=== PATIENT | female | born 1990 | race American Indian/Alaskan Native ===

== ENCOUNTER 2018-05-12 20:23 | Emergency (ER) | payer MEDICAID, SELFPAY ==
[2018-05-12 20:32] VITALS: BP 114/85; PULSE 93; RESP 17; TEMP 36.2; O2SAT 100
--- NOTE | 2018-05-12 20:39 | ED.PREGNANCY ---
HPI - General Chief complaint: OB/Uterine Contractions Stated complaint: CRAMPING, SPOTTING 7 WEEKS Time Seen by Provider: 05/12/18 20:27 Source: patient Mode of arrival: ambulatory Limitations: no limitations History of Present Illness HPI Narrative: Patient is a at 7 weeks with a chief complaint of some left lower pelvic cramping and spotting over the course of the day. She denies any dysuria, frequency or urgency. She denies any fever or chills. She denies nausea, vomiting or diarrhea Onset (ago): day(s) Pain Consistency: intermittent Location: pelvis Severity: mild Quality: Cramping Radiation: pelvis Relieving factors: none Exacerbating factors: none Associated symptoms: denies other symptoms Vaginal discharge: none Vaginal bleeding: light Related Data : 4 Para: 2 Home Medications Medication Instructions Recorded Confirmed dextroamphetamine-amphetamine #0 05/17/17 [Adderall] Allergies Allergy/AdvReac Type Severity Reaction Status Date / Time No Known Allergies Allergy Uncoded 12/30/17 12:31 Review of Systems Review of Systems All systems reviewed & are unremarkable except as noted in HPI and below Constitutional Denies chills, Denies fever(s), Denies lethargy and Denies weakness Eyes Denies change in vision, Denies eye discharge, Denies irritation and Denies loss of vision ENT Ears, Nose, Mouth, and Throat: Denies change in voice, Denies neck pain and Denies sore throat Cardiovascular Denies chest pain, Denies irregular heart rhythm, Denies lightheadedness, Denies palpitations, Denies dyspnea, Denies dyspnea on exertion and Denies orthopnea Respiratory Denies cough, Denies dyspnea, Denies dyspnea on exertion and Denies wheezing Gastrointestinal Gastrointestinal: Denies abdominal pain, Denies change in bowel habits, Denies diarrhea, Denies nausea and Denies vomiting Genitourinary Reports abnormal vaginal bleeding, Denies hematuria, Denies flank pain, Denies urinary incontinence and Denies urinary urgency Musculoskeletal Denies neck pain Integumentary/Breasts Denies pruritus, Denies erythema, Denies rash and Denies wounds Neurologic Denies confusion, Denies loss of vision and Denies weakness Psychiatric Denies anxiety, Denies confusion, Denies depression, Denies homicidal ideation and Denies suicidal ideation Endocrine Denies palpitations Hematologic/Lymphatic Denies easy bruising Allergic/Immunologic Denies wheezing PMFSH - Past Medical History Medical history: Reports non-contributory Surgical history: Reports non-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 Extraoccular muscles are intact bilaterally. There is no subconjunctival hemorrhage or exudate. CHEST: Lungs are clear to auscultation bilaterally and free of wheezes, rales, or rhonchi. Heart rate is regular rhythm, there are no murmurs, clicks, rubs, or gallops. There is no chest wall tenderness. ABD: Abdomen is soft and nontender. There is no guarding or rebound. Bowel sounds are normal in all 4 quadrants. There is no mass or organomegaly. EXT: Full painless ROM of all extremities with no loss of sensation or strength. SKIN: Warm, pink, and dry. No erythema or rash Initial Vital Signs Initial Vital Signs: Vital Signs Temperature 97.2 F L 05/12/18 20:32 Pulse Rate 93 H 05/12/18 20:32 Respiratory Rate 17 05/12/18 20:32 Blood Pressure 114/85 H 05/12/18 20:32 Pulse Oximetry 100 05/12/18 20:32 Course Orders Ordered: ED Orders 05/12/18 21:31 Basic Metabolic Panel Stat Complete Blood Count AUTO DIFF Stat HCG Quantitative Stat Vital Signs - 8 hr 05/12/18 22:40 Pulse Rate 80 Respiratory Rate 18 Blood Pressure 137/44 H MDM - OB/Uterine Contractions Medical Records Attestation: I reviewed the patient's medical records. Lab Data Result diagrams: 05/12/18 21:31 05/12/18 21:31 Lab Results 05/12/18 05/12/18 05/12/18 Range/Units 21:31 21:31 21:31 WBC 14.0 H (4.5-11.0) X10^3/uL RBC 4.78 (4.0-5.2) X10^6/uL Hgb 14.1 (12.0-16.0) g/dL Hct 40.8 (36-46) % MCV 85.4 (80-100) fL MCH 29.6 (26-34) PG MCHC 34.6 (30-36) % RDW 13.5 (11.6-14.8) % Plt Count 312 (150-400) X10^3/uL Neut % (Auto) 67.2 (50-75) % Lymph % (Auto) 24.0 L (25-40) % [place] % (Auto) 6.5 (3-14) % Eos % (Auto) 1.4 L (2-4) % Baso % (Auto) 0.9 (0-2) % Neut # (Auto) 9400 H (5627-3304) /uL Sodium 138 (137-145) mmol/L Potassium 3.6 (3.4-5.1) mmol/L Chloride 103 (98-107) mmol/L Carbon Dioxide 24 (22-32) mmol/L BUN 7 (7-17) mg/dL Creatinine 0.80 (0.52-1.04) mg/dL Estimated GFR > 60.0 (>60) mL/min BUN/Creatinine Ratio 8.8 (6-22) Glucose 96 (70-100) mg/dL Calcium 9.1 (8.4-10.2) mg/dL HCG, Quant 10571 mIU/mL Imaging Data Pelvic US: Radiologist's impression: PROCEDURE: US OB <= 14 WEEKS FETUS INDICATIONS: SPOTTING OUTSIDE/PRIOR DATING DATA: Last menstrual period (LMP): 03/22/18. LMP-based estimated date of delivery (LEAH): 12/27/18. First dating scan (date and location): 05/12/18. Estimated date of delivery (LEAH) from first dating scan: 12/29/18. TECHNIQUE: Real-time scanning was performed of the fetus and maternal pelvic organs, with image documentation. COMPARISON: None. FINDINGS: Embryo: Early intrauterine identified. [place]-rump length measures 0.9 cm corresponding to ultrasound estimated gestational age of 7 weeks days. heart rate measured at 121 beats per minute. Measurement variability in dating: +/- 4 weeks by LMP, +/- 7 days by mean sac diameter (use before 6 weeks gestation if crown-rump length not able to be measured), +/- 5 days by crown-rump length (up to 8 weeks 6 days gestation), +/- 7 days by crown-rump length (up to 13 weeks 6 days gestation). Maternal organs: 1.7 cm diameter simple cyst is noted in the right adnexa. Left adnexa is not visualized and cannot be evaluated. Limited images through the kidneys demonstrate no hydronephrosis. IMPRESSION: 1. Early living intrauterine with ultrasound estimated gestational age of 7 weeks 0 days corresponding to ultrasound LEAH of 12/29/2018. Dates are concordant with last menstrual period dated. 2. 1.7 cm simple right adnexal cyst. 3. Left adnexa not visualized and cannot be evaluated. Dictated by: Samantha Mendez MD, PhD on 05/12/2018 at 22:06 Approved by: Samantha Mendez MD, PhD on 05/12/2018 at 22:08 Discharge Plan Departure Patient Disposition: Home Clinical Impression: Bleeding in early Discharge Date/Time: 05/12/18 22:40 Interventions: ED Discharge Assessment Last Done: 05/12/18 22:40 Instructions: DI for -- Discomforts and Remedies Activity Restrictions/Additional Instructions: *You have been diagnosed with [ bleeding in ] *What to do: *Take medications as directed: vitamins *Follow up with your primary care provider or medical doctor md/medical director in 2-3 days, call for an appointment. Let them know you were seen in the Emergency Department and that we ask that you be seen in follow up *Return to ER if you should have any new, worsening or concerning symptoms, such as [ increased bleeding, pain, dizziness or other bothersome symptoms] Prescriptions: No Action dextroamphetamine-amphetamine [Adderall] 20 MG tablet Qty: 0 RF: 0 Referrals: Italo Clarke MD [Primary Care Provider] -
--- NOTE | 2018-05-12 20:44 | DI.US.S_ITS ---
PROCEDURE: US OB <= 14 WEEKS FETUS INDICATIONS: SPOTTING OUTSIDE/PRIOR DATING DATA: Last menstrual period (LMP): 03/22/18. LMP-based estimated date of delivery (LEAH): 12/27/18. First dating scan (date and location): 05/12/18. Estimated date of delivery (LEAH) from first dating scan: 12/29/18. TECHNIQUE: Real-time scanning was performed of the fetus and maternal pelvic organs, with image documentation. COMPARISON: None. FINDINGS: Embryo: Early intrauterine identified. [place]-rump length measures 0.9 cm corresponding to ultrasound estimated gestational age of 7 weeks days. heart rate measured at 121 beats per minute. Measurement variability in dating: +/- 4 weeks by LMP, +/- 7 days by mean sac diameter (use before 6 weeks gestation if crown-rump length not able to be measured), +/- 5 days by crown-rump length (up to 8 weeks 6 days gestation), +/- 7 days by crown-rump length (up to 13 weeks 6 days gestation). Maternal organs: 1.7 cm diameter simple cyst is noted in the right adnexa. Left adnexa is not visualized and cannot be evaluated. Limited images through the kidneys demonstrate no hydronephrosis. IMPRESSION: 1. Early living intrauterine with ultrasound estimated gestational age of 7 weeks 0 days corresponding to ultrasound LEAH of 12/29/2018. Dates are concordant with last menstrual period dated. 2. 1.7 cm simple right adnexal cyst. 3. Left adnexa not visualized and cannot be evaluated. Dictated by: Samantha Mendez MD, PhD on 05/12/2018 at 22:06 Approved by: Samantha Mendez MD, PhD on 05/12/2018 at 22:08
--- NOTE | 2018-05-12 21:43 | PC.NURSE ---
pt. describes spotting as pinkish
[2018-05-12 21:47] LABS: Add Manual Diff / Slide Review NO; Basophils Percent Auto 0.9 % (0-2); Eosinophils Percent Auto 1.4 % (2-4); Hematocrit 40.8 % (36-46); Hemoglobin 14.1 g/dL (12.0-16.0); Mean Corpuscular HGB Conc 34.6 % (30-36); Mean Corpuscular Hemoglobin 29.6 PG (26-34); Mean Corpuscular Volume 85.4 fL (80-100); Monocytes Percent Auto 6.5 % (3-14); Neutrophils Absolute Auto 9400 /uL (3000-5900); Neutrophils Percent Auto 67.2 % (50-75); Platelet Count 312 X10^3/uL (150-400); Red Blood Cell Count 4.78 X10^6/uL (4.0-5.2); Red Cell Distribution Width 13.5 % (11.6-14.8)
[2018-05-12 21:55] LABS: BUN Creatinine Ratio 8.8 (6-22); Blood Urea Nitrogen 7 mg/dL (7-17); Calcium 9.1 mg/dL (8.4-10.2); Carbon Dioxide 24 mmol/L (22-32); Chloride 103 mmol/L (98-107); Estimated Glomerular Filt Rate > 60.0 mL/min (>60); Glucose 96 mg/dL (70-100); HEMOLYSIS 30 (0-50); Potassium 3.6 mmol/L (3.4-5.1); Sodium 138 mmol/L (137-145)
[2018-05-12 22:15] LABS: HCG Quantitative /Beta subunit 48761 mIU/mL
[2018-05-12 22:40] VITALS: BP 137/44; PULSE 80; RESP 18
--- NOTE | 2018-05-12 22:46 | ED_ITS ---
HPI - General Chief complaint: OB/Uterine Contractions Stated complaint: CRAMPING, SPOTTING 7 WEEKS Time Seen by Provider: 05/12/18 20:27 Source: patient Mode of arrival: ambulatory Limitations: no limitations History of Present Illness HPI Narrative: Patient is a at 7 weeks with a chief complaint of some left lower pelvic cramping and spotting over the course of the day. She denies any dysuria, frequency or urgency. She denies any fever or chills. She denies nausea, vomiting or diarrhea Onset (ago): day(s) Pain Consistency: intermittent Location: pelvis Severity: mild Quality: Cramping Radiation: pelvis Relieving factors: none Exacerbating factors: none Associated symptoms: denies other symptoms Vaginal discharge: none Vaginal bleeding: light Related Data : 4 Para: 2 Home Medications Medication Instructions Recorded Confirmed dextroamphetamine-amphetamine #0 05/17/17 [Adderall] Allergies Allergy/AdvReac Type Severity Reaction Status Date / Time No Known Allergies Allergy Uncoded 12/30/17 12:31 Review of Systems Review of Systems All systems reviewed & are unremarkable except as noted in HPI and below Constitutional Denies chills, Denies fever(s), Denies lethargy and Denies weakness Eyes Denies change in vision, Denies eye discharge, Denies irritation and Denies loss of vision ENT Ears, Nose, Mouth, and Throat: Denies change in voice, Denies neck pain and Denies sore throat Cardiovascular Denies chest pain, Denies irregular heart rhythm, Denies lightheadedness, Denies palpitations, Denies dyspnea, Denies dyspnea on exertion and Denies orthopnea Respiratory Denies cough, Denies dyspnea, Denies dyspnea on exertion and Denies wheezing Gastrointestinal Gastrointestinal: Denies abdominal pain, Denies change in bowel habits, Denies diarrhea, Denies nausea and Denies vomiting Genitourinary Reports abnormal vaginal bleeding, Denies hematuria, Denies flank pain, Denies urinary incontinence and Denies urinary urgency Musculoskeletal Denies neck pain Integumentary/Breasts Denies pruritus, Denies erythema, Denies rash and Denies wounds Neurologic Denies confusion, Denies loss of vision and Denies weakness Psychiatric Denies anxiety, Denies confusion, Denies depression, Denies homicidal ideation and Denies suicidal ideation Endocrine Denies palpitations Hematologic/Lymphatic Denies easy bruising Allergic/Immunologic Denies wheezing PMFSH - Past Medical History Medical history: Reports non-contributory Surgical history: Reports non-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 Extraoccular muscles are intact bilaterally. There is no subconjunctival hemorrhage or exudate. CHEST: Lungs are clear to auscultation bilaterally and free of wheezes, rales, or rhonchi. Heart rate is regular rhythm, there are no murmurs, clicks, rubs, or gallops. There is no chest wall tenderness. ABD: Abdomen is soft and nontender. There is no guarding or rebound. Bowel sounds are normal in all 4 quadrants. There is no mass or organomegaly. EXT: Full painless ROM of all extremities with no loss of sensation or strength. SKIN: Warm, pink, and dry. No erythema or rash Initial Vital Signs Initial Vital Signs: Vital Signs Temperature 97.2 F L 05/12/18 20:32 Pulse Rate 93 H 05/12/18 20:32 Respiratory Rate 17 05/12/18 20:32 Blood Pressure 114/85 H 05/12/18 20:32 Pulse Oximetry 100 05/12/18 20:32 Course Orders Ordered: ED Orders 05/12/18 21:31 Basic Metabolic Panel Stat Complete Blood Count AUTO DIFF Stat HCG Quantitative Stat Vital Signs - 8 hr 05/12/18 22:40 Pulse Rate 80 Respiratory Rate 18 Blood Pressure 137/44 H MDM - OB/Uterine Contractions Medical Records Attestation: I reviewed the patient's medical records. Lab Data Result diagrams: 05/12/18 21:31 05/12/18 21:31 Lab Results 05/12/18 05/12/18 05/12/18 Range/Units 21:31 21:31 21:31 WBC 14.0 H (4.5-11.0) X10^3/uL RBC 4.78 (4.0-5.2) X10^6/uL Hgb 14.1 (12.0-16.0) g/dL Hct 40.8 (36-46) % MCV 85.4 (80-100) fL MCH 29.6 (26-34) PG MCHC 34.6 (30-36) % RDW 13.5 (11.6-14.8) % Plt Count 312 (150-400) X10^3/uL Neut % (Auto) 67.2 (50-75) % Lymph % (Auto) 24.0 L (25-40) % [place] % (Auto) 6.5 (3-14) % Eos % (Auto) 1.4 L (2-4) % Baso % (Auto) 0.9 (0-2) % Neut # (Auto) 9400 H (7751-8704) /uL Sodium 138 (137-145) mmol/L Potassium 3.6 (3.4-5.1) mmol/L Chloride 103 (98-107) mmol/L Carbon Dioxide 24 (22-32) mmol/L BUN 7 (7-17) mg/dL Creatinine 0.80 (0.52-1.04) mg/dL Estimated GFR > 60.0 (>60) mL/min BUN/Creatinine Ratio 8.8 (6-22) Glucose 96 (70-100) mg/dL Calcium 9.1 (8.4-10.2) mg/dL HCG, Quant 92679 mIU/mL Imaging Data Pelvic US: Radiologist's impression: PROCEDURE: US OB <= 14 WEEKS FETUS INDICATIONS: SPOTTING OUTSIDE/PRIOR DATING DATA: Last menstrual period (LMP): 03/22/18. LMP-based estimated date of delivery (LEAH): 12/27/18. First dating scan (date and location): 05/12/18. Estimated date of delivery (LEAH) from first dating scan: 12/29/18. TECHNIQUE: Real-time scanning was performed of the fetus and maternal pelvic organs, with image documentation. COMPARISON: None. FINDINGS: Embryo: Early intrauterine identified. [place]-rump length measures 0.9 cm corresponding to ultrasound estimated gestational age of 7 weeks days. heart rate measured at 121 beats per minute. Measurement variability in dating: +/- 4 weeks by LMP, +/- 7 days by mean sac diameter (use before 6 weeks gestation if crown-rump length not able to be measured), +/ - 5 days by crown-rump length (up to 8 weeks 6 days gestation), +/- 7 days by crown-rump length (up to 13 weeks 6 days gestation). Maternal organs: 1.7 cm diameter simple cyst is noted in the right adnexa. Left adnexa is not visualized and cannot be evaluated. Limited images through the kidneys demonstrate no hydronephrosis. IMPRESSION: 1. Early living intrauterine with ultrasound estimated gestational age of 7 weeks 0 days corresponding to ultrasound LEAH of 12/29/2018. Dates are concordant with last menstrual period dated. 2. 1.7 cm simple right adnexal cyst. 3. Left adnexa not visualized and cannot be evaluated. Dictated by: Samantha Mendez MD, PhD on 05/12/2018 at 22:06 Approved by: Samantha Mendez MD, PhD on 05/12/2018 at 22:08 Discharge Plan Departure Patient Disposition: Home Clinical Impression: Bleeding in early Discharge Date/Time: 05/12/18 22:40 Interventions: ED Discharge Assessment Last Done: 05/12/18 22:40 Instructions: DI for -- Discomforts and Remedies Activity Restrictions/Additional Instructions: *You have been diagnosed with [ bleeding in ] *What to do: *Take medications as directed: vitamins *Follow up with your primary care provider or station worker in 2-3 days, call for an appointment. Let them know you were seen in the Emergency Department and that we ask that you be seen in follow up *Return to ER if you should have any new, worsening or concerning symptoms , such as [ increased bleeding, pain, dizziness or other bothersome symptoms] Prescriptions: No Action dextroamphetamine-amphetamine [Adderall] 20 MG tablet Qty: 0 RF: 0 Referrals: Italo Clarke MD [Primary Care Provider] -
== END 2018-05-12 22:40 | disposition home or self-care (01) ==
PROVIDERS: Emergency Provider Emergency Medicine; Family Provider Family Medicine; PCP Family Medicine
DX: O20.9 Hemorrhage in early pregnancy, unspecified (principal); Z3A.01 Less than 8 weeks gestation of pregnancy
CPT/HCPCS: 36591; 76801; 76817; 80048; 81003; 84702; 85025; 99282; 99284

== ENCOUNTER → 2018-11-04 15:09 | Outpatient (CLI) | payer OTHER, MEDICAID, SELFPAY ==
--- NOTE | 2018-11-04 | DI.US.S_ITS ---
PROCEDURE: US OB <= 14 WEEKS FETUS INDICATIONS: PAIN/BLEEDING OUTSIDE/PRIOR DATING DATA: Last menstrual period (LMP): Patient had an IUD placed in April 2018. LMP-based estimated date of delivery (LEAH): N./A.. First dating scan (date and location): 11/04/2018. Estimated date of delivery (LEAH) from first dating scan: 06/23/2019. TECHNIQUE: Real-time scanning was performed of the fetus and maternal pelvic organs, with image documentation. Endovaginal scanning was also performed to better visualize the fetus and maternal ovaries. COMPARISON: [facility], , OB <= 14 WEEKS FETUS, 05/12/2018, 21:34. FINDINGS: Embryo: There is a single intrauterine gestation measuring approximately 7 weeks and 0 days. The mean gestational sac diameter measured 2.7 cm which correlates with a gestational age of approximately 7 weeks and 5 days. The crown-rump length measured 0.5 cm, correlating with approximately 6 weeks and 2 days. heart rate measured 115 beats per minute. Measurement variability in dating: +/- 4 weeks by LMP, +/- 7 days by mean sac diameter (use before 6 weeks gestation if crown-rump length not able to be measured), +/- 5 days by crown-rump length (up to 8 weeks 6 days gestation), +/- 7 days by crown-rump length (up to 13 weeks 6 days gestation). Maternal organs: The bilateral ovaries/adnexa unremarkable. Small 1.1 cm right ovarian cyst. Of note, patient reports that an IUD was placed in April 2018 and she has not been able to feel the IUD strings. There is a thin echogenic structure identified in close vicinity to the inferior margin of the gestational sac without significantly posterior shadowing or the expected appearance of an intrauterine device. There is a heterogeneous, avascular collection seen immediately inferior to the gestational sac measuring 1.9 x 1.4 x 2.1 cm which may represent a small focus of hemorrhagic products. Small nabothian cyst noted within the cervix. IMPRESSION: 1. Single living intrauterine gestation measuring approximately 7 weeks and 0 days. 2. The patient reports placement of an intrauterine device in April 2018 and has not been able to feel the strings. There is an echogenic structure in close vicinity to the inferior aspect of the gestational sac in the lower endometrial cavity which does not have the expected appearance of an IUD. No definitive visualization of a intrauterine device. Additionally, small avascular heterogeneous focus is noted adjacent to the inferior margin of the gestational sac which may represent a small focus of hemorrhage or complicated fluid. Findings were discussed with SMITH Contreras. Recommended correlation with physical examination for presence of IUD strings within the cervical canal. Consider further sonographic imaging of the cervix and lower uterus if there is visualization of the strings in order to possibly locate the exact position of the IUD. A pelvic radiograph to confirm presence of an IUD was also discussed, but not recommended secondary to presence of an early intrauterine gestation. Dictated by: Juan M Wset M.D. on 11/05/2018 at 9:50 Approved by: Juan M West M.D. on 11/05/2018 at 10:03
== END ==
PROVIDERS: PCP Physician Assistant; Visit Provider Physician Assistant
DX: O46.91 Antepartum hemorrhage, unspecified, first trimester (principal); Z3A.01 Less than 8 weeks gestation of pregnancy
CPT/HCPCS: 76801; 76817

== ENCOUNTER → 2018-11-10 17:08 | Outpatient (CLI) | payer OTHER, MEDICAID, SELFPAY ==
--- NOTE | 2018-11-10 | DI.RAD.S_ITS ---
PROCEDURE: XR ABDOMEN 1V INDICATIONS: DISPLACEMENT OF INTRAUTERINE DEVICE TECHNIQUE: One view of the abdomen acquired. COMPARISON: None. FINDINGS: Surgical changes and devices: None. Bowel: Bowel gas pattern is normal. Soft tissues: No suspicious abdominal calcifications. Visualized solid organ contours appear normal in size. Bones: No suspicious bony lesions. IMPRESSION: No intrauterine device is seen. No gross free air. Dictated by: Tonny Chance M.D. on 11/10/2018 at 17:56 Approved by: Tonny Chance M.D. on 11/10/2018 at 17:57
== END ==
PROVIDERS: PCP Physician Assistant; Visit Provider Family Medicine
DX: T83.32XA Displacement of intrauterine contraceptive device, initial encounter (principal)
CPT/HCPCS: 74018

== ENCOUNTER 2022-09-03 06:44 | Emergency (ER) | payer OTHER, SELFPAY ==
[2022-09-03 06:50] VITALS: BP 123/57; PULSE 85; RESP 18; TEMP 36.2; O2SAT 99; BMI 32.4
--- NOTE | 2022-09-03 06:57 | ED_ITS ---
HPI - General Adult General Chief complaint: Vaginal Bleeding Stated complaint: 12 weeks bleeding and cramping Time Seen by Provider: 09/03/22 06:57 History of Present Illness HPI narrative: 32F nonsmoker is at 12 weeks presents with a chief complaint of spotting off and on for the past few weeks. She was out of town few days ago was seen and evaluated in emergency department in [place] and was given return precautions which include increased bleeding or cramping would require a repeat visit, hence her trip to see us. She denies significant bleeding but does have more cramping today. She has no headache or blurred vision denies chest pain or shortness of breath. She has not some nausea and a few episodes of vomiting which seems to make her spot a bit more. She denies chest pain or shortness of breath. She has no dysuria, frequency or urgency Related Data Home Medications Medication Instructions Recorded Confirmed dextroamphetamine-amphetamine 20 ##0 05/17/17 mg tablet (Adderall) Previous Rx's Medication Instructions Recorded cephalexin 500 mg capsule 500 mg PO BID #14 caps 09/03/22 Allergies Allergy/AdvReac Type Severity Reaction Status Date / Time No Known Drug Allergies Allergy Verified 09/03/22 08:03 Review of Systems Review of Systems Narrative: GENERAL: Denies chills, fatigue, malaise, fever, sweats. HEENT: Denies sinus pain, ear pain, sore throat, difficulty swallowing, dizziness. RESPIRATORY: Denies dyspnea, cough, wheezing, hemoptysis, sputum. CARDIOVASCULAR: Denies chest pain, palpitations, orthopnea, edema, GASTROINTESTINAL: D see HPI : See HPI. MUSCULOSKELETAL: denies weakness, joint pain, or bony pain SKIN: Denies rash, skin lesions, or other NEUROLOGIC: Denies weakness, headache, numbness, change in speech, confusion, seizures, incoordination. PSYCHIATRIC: No concerning psychosocial issues. 12 point review of systems is negative except for those stated above Patient History Social History Smoking Status: Unknown if ever smoked Smoking Status: Unknown if ever smoked alcohol intake frequency: 0-2 drinks per day Substance Use Type: does not use Exam Narrative Exam Narrative: GENERAL: [32] year old patient appears stated age. Well-developed patient, in mild distress. HEAD: Atraumatic. Normocephalic. EYES: Pupils equal round and reactive. Extraocular motions intact. No scleral icterus. No injection or drainage. ENT: Nose without bleeding, purulent drainage. Throat without erythema, tonsillar hypertrophy or exudate. Airway patent. NECK: Trachea midline. Non tender CARDIOVASCULAR: Regular rate and rhythm without murmurs, gallops, or rubs. RESPIRATORY: Clear to auscultation. Breath sounds equal bilaterally. No wheezes, rales, or rhonchi. GASTROINTESTINAL: Abdomen soft, non-tender, nondistended. EXTREMITIES: No edema or joint tenderness. BACK: Nontender without deformity or crepitance. No flank tenderness. NEURO: AOx3. SKIN: No rash or erythema of visible areas Initial Vital Signs Initial Vital Signs: Vital Signs Temperature 97.2 F L 09/03/22 06:50 Pulse Rate 85 09/03/22 06:50 Respiratory Rate 18 09/03/22 06:50 Blood Pressure 123/57 L 09/03/22 06:50 Pulse Oximetry 99 09/03/22 06:50 Oxygen Delivery Method 09/03/22 06:50 Course Orders Ordered: ED Orders 09/03/22 07:01 US OB <= 14 weeks fetus Stat 09/03/22 07:18 ABO RH Type Stat BMP [Basic Metabolic Panel] Stat CBC Auto Diff [Complete Blood Count AUTO DIFF] Stat HCG Quantitative /Beta subunit Stat 09/03/22 08:00 Urinalysis and Microscopic Stat Urine Culture Stat Vital Signs Vital signs: Vital Signs - 8 hr 09/03/22 06:50 Temperature 97.2 F L Pulse Rate 85 Respiratory Rate 18 Blood Pressure 123/57 L Pulse Oximetry 99 Oxygen Delivery Method Room Air Medical Decision Making Lab Data Result diagrams: 09/03/22 07:18 09/03/22 07:18 Labs: Lab Results 09/03/22 09/03/22 09/03/22 Range/Units 07:18 07:18 07:18 WBC 9.6 (4.5-11.0) X10^3/uL RBC 4.60 (4.0-5.2) X10^6/uL Hgb 13.7 (12.0-16.0) g/dL Hct 41.0 (36-46) % MCV 89.2 (80-100) fL MCH 29.9 (26-34) PG MCHC 33.5 (30-36) % RDW 13.3 (11.6-14.8) % Plt Count 236 (150-400) X10^3/uL Neut % (Auto) 60.8 (50-75) % Lymph % (Auto) 31.7 (25-40) % [place]ati % (Auto) 5.6 (3-14) % Eos % (Auto) 1.2 L (2-4) % Baso % (Auto) 0.7 (0-2) % Neut # (Auto) 5800 (1272-0657) /uL Lymph # (Auto) 3000 (8896-5752) /uL Manati # (Auto) 500 (0-900) /uL Eos # (Auto) 100 (0-450) /uL Baso # (Auto) 100 (0-100) /uL Sodium 137 (137-145) mmol/L Potassium 3.7 (3.4-5.1) mmol/L Chloride 106 (98-107) mmol/L Carbon Dioxide 22 (22-32) mmol/L BUN 6 L (7-17) mg/dL Creatinine 0.61 (0.52-1.04) mg/dL Estimated GFR > 60 (>60) mL/min BUN/Creatinine Ratio 9.8 (6-22) Glucose 91 (70-100) mg/dL Calcium 8.5 (8.4-10.2) mg/dL HCG, Quant 765578 mIU/mL Urine Color Urine Appearance Urine pH (4.5-8.0) Ur Specific Kaufman (1.000-1.035) Urine Protein (Negative) Urine Glucose (UA) (Negative) g/dL Urine Ketones (NEGATIVE) Urine Occult Blood (Negative) Urine Nitrate (Negative) Urine Bilirubin (NEGATIVE) Urine Urobilinogen (0.2) E.U./dL Ur Leukocyte Esterase (NEGATIVE) Urine RBC (0-5/HPF) Urine WBC (0-5/HPF) Ur Squamous Epith Cells (0-5/HPF) Amorphous Sediment Urine Bacteria (None) Ur Culture Indicated? Blood Type O Positive 09/03/22 Range/Units 08:00 WBC (4.5-11.0) X10^3/uL RBC (4.0-5.2) X10^6/uL Hgb (12.0-16.0) g/dL Hct (36-46) % MCV (80-100) fL MCH (26-34) PG MCHC (30-36) % RDW (11.6-14.8) % Plt Count (150-400) X10^3/uL Neut % (Auto) (50-75) % Lymph % (Auto) (25-40) % [place] % (Auto) (3-14) % Eos % (Auto) (2-4) % Baso % (Auto) (0-2) % Neut # (Auto) (5536-2742) /uL Lymph # (Auto) (9058-1796) /uL Manati # (Auto) (0-900) /uL Eos # (Auto) (0-450) /uL Baso # (Auto) (0-100) /uL Sodium (137-145) mmol/L Potassium (3.4-5.1) mmol/L Chloride (98-107) mmol/L Carbon Dioxide (22-32) mmol/L BUN (7-17) mg/dL Creatinine (0.52-1.04) mg/dL Estimated GFR (>60) mL/min BUN/Creatinine Ratio (6-22) Glucose (70-100) mg/dL Calcium (8.4-10.2) mg/dL HCG, Quant mIU/mL Urine Color Red Urine Appearance Sl cloudy Urine pH 7.0 (4.5-8.0) Ur Specific Kaufman 1.020 (1.000-1.035) Urine Protein 2+ H (Negative) Urine Glucose (UA) Negative (Negative) g/dL Urine Ketones Negative (NEGATIVE) Urine Occult Blood 3+ H (Negative) Urine Nitrate Negative (Negative) Urine Bilirubin Negative (NEGATIVE) Urine Urobilinogen 1.0 (0.2) E.U./dL Ur Leukocyte Esterase Trace H (NEGATIVE) Urine RBC 30-100/hpf H (0-5/HPF) Urine WBC 5-10/hpf H (0-5/HPF) Ur Squamous Epith Cells 5-10 /hpf H (0-5/HPF) Amorphous Sediment 1+ Urine Bacteria Many (>30) H (None) Ur Culture Indicated? Specimen cultured Blood Type Imaging Data US - OB: Radiologist's Impression: Close Ultrasound (Signed) Juan M West - 09/03/22 Launch?[address] [place] [address] Ultrasound Report Signed Patient: Chaya Evans MR#: [id number] : 1990 Acct:[id number] Age/Sex: 32 / F Date of Service: 09/03/22 Loc: Accession Number: [id number] ?? Procedure: US OB <= 14 weeks fetus Ordering Provider: Olayinka Lanza D.O. PROCEDURE:? US OB <= 14 WEEKS FETUS ? INDICATIONS:? SPOTTING ? OUTSIDE/PRIOR DATING DATA:? Last menstrual period (LMP):? Unknown.? LMP-based estimated date of delivery (LEAH):? Not applicable.? First dating scan (date and location):? September 03, 2022.? Estimated date of delivery (LEAH) from first dating scan:? March 11, 2023. ? TECHNIQUE:? Real-time scanning was performed of the fetus and maternal pelvic organs, with image documentation.? ? COMPARISON:? None. ? FINDINGS:? ? Embryo:? Single living intrauterine gestation with estimated sonographic gestational age of approximately 13 weeks and 0 days based off biometry measurements. BPD:? 1.9 cm, 13 weeks and 0 days. Head circumference:? 7.3 cm, 13 weeks and 0 day Abdominal circumference:? 6.7 cm, 13 weeks and 3 days Femur length:? 0.7 cm, 12 weeks and 2 days Heart rate:? 150 ? ? Maternal organs:? Ovaries were not well visualized. ? ? ? IMPRESSION:? Single living intrauterine gestation with estimated sonographic gestational age of approximately 13 weeks and 0 days.? This correlates with estimated dated delivery of approximately 03/11/23. ? We strive to produce accurate, complete, and clear reports of imaging services. To assist us in improving patient care, this report was composed using standard report templates and voice recognition software. Therefore, it may contain abnormal punctuation, insertions and/or omissions. Occasional wrong-word or sound-alike substitutions may occur. Though we review the report and make efforts to correct it, we do recommend that the report be read carefully in proper context to recognize any text inaccuracies. ? ? ? Dictated by: Juan M West M.D. on 09/03/2022 at 8:26 ? ? Approved by: Juan M West M.D. on 09/03/2022 at 8:35 ? Discharge Plan Departure Patient Disposition: Home Clinical Impression: Bleeding in early , UTI (urinary tract infection) Instructions: DI for Urinary Tract Infection (UTI), DI for Vaginal Bleeding During Activity Restrictions/Additional Instructions: *You have been diagnosed with [bleeding in 1st trimester, urinary tract infection. As we discussed your lab work and ultrasound are very reassuring and there is no evidence of significant intrauterine bleeding, anemia or other significant abnormality] *What to do: *Please continue to take your regular medications as directed. [x ] New medication prescriptions sent to your pharmacy: [[facility] ] [ ] New medication written as a paper prescription [ ] No new medications given *Please follow up with your primary care provider in 2-3 days, call for an a ppointment. Let them know you were seen in the Emergency Department and that we ask that you be seen in follow up. We will electronically transmit a record of today's note if your PCP is in our system *As we discussed, please consider pelvic rest until cleared by your OB. This means no vaginal penetration or highly vigorous activities. *Return to Emergency Department if you should have any new, worsening or concerning symptoms, such as [fever greater than 101 F, shaking chills, worsening pain, persistent vomiting or other bothersome symptoms] Prescriptions: New cephalexin 500 mg capsule 500 mg PO BID Qty: 14 0RF No Action dextroamphetamine-amphetamine [Adderall] 20 MG tablet Qty: 0 Referrals: Sonia Colon PA-C [Primary Care Provider] - Visit Report Forms: Patient Portal/API
--- NOTE | 2022-09-03 07:01 | DI.US.S_ITS ---
PROCEDURE: US OB <= 14 WEEKS FETUS INDICATIONS: SPOTTING OUTSIDE/PRIOR DATING DATA: Last menstrual period (LMP): Unknown. LMP-based estimated date of delivery (LEAH): Not applicable. First dating scan (date and location): September 03, 2022. Estimated date of delivery (LEAH) from first dating scan: March 11, 2023. TECHNIQUE: Real-time scanning was performed of the fetus and maternal pelvic organs, with image documentation. COMPARISON: None. FINDINGS: Embryo: Single living intrauterine gestation with estimated sonographic gestational age of approximately 13 weeks and 0 days based off biometry measurements. BPD: 1.9 cm, 13 weeks and 0 days. Head circumference: 7.3 cm, 13 weeks and 0 day Abdominal circumference: 6.7 cm, 13 weeks and 3 days Femur length: 0.7 cm, 12 weeks and 2 days Heart rate: 150 Maternal organs: Ovaries were not well visualized. IMPRESSION: Single living intrauterine gestation with estimated sonographic gestational age of approximately 13 weeks and 0 days. This correlates with estimated dated delivery of approximately 03/11/23. We strive to produce accurate, complete, and clear reports of imaging services. To assist us in improving patient care, this report was composed using standard report templates and voice recognition software. Therefore, it may contain abnormal punctuation, insertions and/or omissions. Occasional wrong-word or sound-alike substitutions may occur. Though we review the report and make efforts to correct it, we do recommend that the report be read carefully in proper context to recognize any text inaccuracies. Dictated by: Juan M West M.D. on 09/03/2022 at 8:26 Approved by: Juan M West M.D. on 09/03/2022 at 8:35
[2022-09-03 07:32] LABS: Add Manual Diff / Slide Review NO; Basophils Absolute Auto 100 /uL (0-100); Basophils Percent Auto 0.7 % (0-2); Eosinophils Absolute Auto 100 /uL (0-450); Eosinophils Percent Auto 1.2 % (2-4); Hemoglobin 13.7 g/dL (12.0-16.0); Lymphocytes Absolute Auto 3000 /uL (1100-4500); Lymphocytes Percent Auto 31.7 % (25-40); Mean Corpuscular HGB Conc 33.5 % (30-36); Mean Corpuscular Hemoglobin 29.9 PG (26-34); Mean Corpuscular Volume 89.2 fL (80-100); Monocytes Absolute Auto 500 /uL (0-900); Monocytes Percent Auto 5.6 % (3-14); Neutrophils Absolute Auto 5800 /uL (1500-7000); Neutrophils Percent Auto 60.8 % (50-75); Platelet Count 236 X10^3/uL (150-400); Red Cell Distribution Width 13.3 % (11.6-14.8); White Blood Cell Count 9.6 X10^3/uL (4.5-11.0)
[2022-09-03 07:45] LABS: BUN Creatinine Ratio 9.8 (6-22); Blood Urea Nitrogen 6 mg/dL (7-17); Calcium 8.5 mg/dL (8.4-10.2); Carbon Dioxide 22 mmol/L (22-32); Chloride 106 mmol/L (98-107); Estimated Glomerular Filt Rate > 60 mL/min (>60); Glucose 91 mg/dL (70-100); HEMOLYSIS < 15 (0-50); Potassium 3.7 mmol/L (3.4-5.1); Sodium 137 mmol/L (137-145)
[2022-09-03 08:08] LABS: Appearance Urine UA SL CLOUDY; Bilirubin Urine UA NEGATIVE (NEGATIVE); Glucose Urine UA NEGATIVE (Negative); Ketones Urine UA NEGATIVE (NEGATIVE); Leukocyte Esterase Urine UA TRACE (NEGATIVE); Nitrite Urine UA NEGATIVE (Negative); Occult Blood Urine UA 3+ (Negative); Protein Urine UA 2+ (Negative)
[2022-09-03 08:18] LABS: Amorphous Sediment Urine 1+; Bacteria Urine Many (>30); Color Urine UA Red; Culture Indicated Urine Specimen Cultured; RBC Urine 30-100/HPF (0-5/HPF); Squamous Epithelial Cell Urine 5-10 /HPF (0-5/HPF); WBC Urine 5-10/HPF (0-5/HPF)
[2022-09-03 08:27] LABS: HCG Quantitative /Beta subunit 134490 mIU/mL
[2022-09-03 08:30] VITALS: BP 109/68; PULSE 88; RESP 16; O2SAT 99
== END 2022-09-03 08:59 | disposition home or self-care (01) ==
PROVIDERS: Emergency Provider Emergency Medicine; PCP Physician Assistant
DX: O46.91 Antepartum hemorrhage, unspecified, first trimester (principal); O23.41 Unspecified infection of urinary tract in pregnancy, first trimester; N39.0 Urinary tract infection, site not specified; Z3A.12 12 weeks gestation of pregnancy
CPT/HCPCS: 36415; 76801; 80048; 81001; 84702; 85025; 86900; 86901; 87086; 99282; 99284

== ENCOUNTER 2023-01-18 10:20 | Observation (INO) | payer OTHER, SELFPAY ==
--- NOTE | 2023-01-18 | DI.US.S_ITS ---
PROCEDURE: US OB LIMITED INDICATIONS: Premature ctx; please assess cervical length, biometrics OUTSIDE/PRIOR DATING DATA: Last menstrual period (LMP): Not known. LMP-based estimated date of delivery (LEAH): Not applicable. First dating scan (date and location): 09/03/2022. Estimated date of delivery (LEAH) from first dating scan: 03/11/2023. The calculations are made using the ultrasound LEAH of 03/11/2023. TECHNIQUE: Real-time scanning was performed of the fetus, with image documentation and biometric measurements. Biophysical profile was also obtained. Endovaginal scanning: Performed for additional visualization COMPARISON: [facility], US, US OB <= 14 WEEKS FETUS, 09/03/2022, 7:12. FINDINGS: General: A single live intrauterine gestation is present. Presentation: Vertex. Placenta: Placental position is anterior , without previa. Amniotic fluid index: 19.8 cm, normal range is 5-24 cm. Single deepest vertical pocket is 7.3 cm. heart rate: 140 beats per minute. Maternal cervical canal: 1.5 cm long. Mild internal funneling can be seen. biometrics: Biparietal diameter: 8.5 cm equals 34 weeks 2 days Head circumference: 30.8 cm equals 34 weeks 2 days Abdominal circumference: 30.3 cm equals 34 weeks 2 days Femur length: 6.1 cm equals 31 weeks 5 days Ultrasound calculated gestational age: 32 weeks 4 days Composite gestational age from present scan: 33 weeks 5 days Estimated weight and percentile: 2233 g, 73rd percentile Biophysical profile: Tone: 2 points. Movement: 2 points. Respiration: 2 points. Largest pocket of fluid: 2 points. IMPRESSION: We shortened cervix, 1.5 cm. Mild internal funneling is seen. Normal biophysical profile, 8/8 points. Normal interval growth when compared to the prior ultrasound examination. We strive to produce accurate, complete, and clear reports of imaging services. To assist us in improving patient care, this report was composed using standard report templates and voice recognition software. Therefore, it may contain abnormal punctuation, insertions and/or omissions. Occasional wrong-word or sound-alike substitutions may occur. Though we review the report and make efforts to correct it, we do recommend that the report be read carefully in proper context to recognize any text inaccuracies. Dictated by: Moi Felipe M.D. on 01/18/2023 at 12:29 Approved by: Moi Felipe M.D. on 01/18/2023 at 12:32
--- NOTE | 2023-01-18 11:27 | PM.OBTRLD ---
Visit Information Visit Information Date of evaluation: 01/18/23 Primary OB Provider: Aura Khalil () On-call OB Provider: Rehan Murray Reason for Evaluation: Yes pre-term labor Comments/Additional reasons for admission: 32 yo LEAH 03/11/2023 who has been receiving her P[facility] at [facility] in [place] presents now at 32+4 wks EGA with the onset of uterine cramps since early this AM. BOWI, good FM, no change in vaginal discharge. Vital Signs Vital Signs: BP: 118/66 P: 82 R: 16 T: 36.2C PFSH Social History Smoking Status: Unknown if ever smoked Review of Systems Review of Systems Narrative: Problem-specific ROS positives included in HPI Exam Vital Signs (past 8 hours): BP: 118/66 P: 82 R: 16 T: 36.2C Const General: cooperative, healthy appearing and comfortable Nutritional Appearance: average body habitus Orientation: alert and oriented x3 HENMT Head: normal to inspection, normocephalic and atraumatic Eyes General: appearance normal, both eyes and all related structures EOM: EOM intact bilaterally Neck Neck: normal visual inspection Resp Effort & Inspection: normal respiratory effort and able to speak in complete sentences Auscultation: clear to auscultation bilaterally Cardio Rate: regular rate Rhythm: regular rhythm Heart Sounds: S1 normal, S2 normal and no murmurs GI Inspection: normal to inspection Palpation: soft and no hepatosplenomegaly Manual OB Exam: dilated 1, effaced (60), station -2 and other Uterus Location (Fundal Height): 32 Other: Cervix is soft, mid-position (BS=7) Extrem Right lower extremity: normal to inspection Objective Imaging OB US Limited: Radiologist's impression: PROCEDURE:? US OB LIMITED ? INDICATIONS:? Premature ctx; please assess cervical length, biometrics ? OUTSIDE/PRIOR DATING DATA:? Last menstrual period (LMP):? Not known.? LMP-based estimated date of delivery (LEAH):? Not applicable.? First dating scan (date and location):? 09/03/2022.? Estimated date of delivery (LEAH) from first dating scan:? 03/11/2023. The calculations are made using the ultrasound LEAH of 03/11/2023.? ? TECHNIQUE:? Real-time scanning was performed of the fetus, with image documentation and biometric measurements.? Biophysical profile was also obtained.? Endovaginal scanning:? Performed for additional visualization ? COMPARISON:? [facility], , OB <= 14 WEEKS FETUS, 09/03/2022, 7:12. ? FINDINGS:? ? General:? A single live intrauterine gestation is present.? Presentation:? Vertex.? Placenta:? Placental position is anterior , without previa.? ? Amniotic fluid index:? 19.8 cm, normal range is 5-24 cm.? Single deepest vertical pocket is 7.3 cm. heart rate:? 140 beats per minute.? Maternal cervical canal:? 1.5 cm long.? Mild internal funneling can be seen. ? biometrics:? Biparietal diameter:? 8.5 cm equals 34 weeks 2 days Head circumference:? 30.8 cm equals 34 weeks 2 days Abdominal circumference:? 30.3 cm equals 34 weeks 2 days Femur length:? 6.1 cm equals 31 weeks 5 days Ultrasound calculated gestational age:? 32 weeks 4 days Composite gestational age from present scan:? 33 weeks 5 days Estimated weight and percentile:? 2233 g, 73rd percentile ? Biophysical profile:? Tone:? 2 points. Movement:? 2 points.? Respiration:? 2 points.? Largest pocket of fluid:? 2 points.? IMPRESSION:? We shortened cervix, 1.5 cm.? Mild internal funneling is seen. ? Normal biophysical profile, 8/8 points. ? Normal interval growth when compared to the prior ultrasound examination.? Evaluation Evaluation Baseline heart rate: 140 Variability: Moderate (11-25) monitor accelerations: Present Monitor Decelerations: Absent Contraction Frequency (minutes): 5 Uterine Contraction Intensity: Mild Category of Tracing: Reactive Status: Category l Cervical dilation (cm): 1 Cervical effacement (%): 60 station: -2 Comments: FFN:NEGATIVE Cervical length: 1.5 CM; patient states this is a significant change from prior cervical length determinations at Diagnosis, Plan/Disposition Final Diagnosis (1) : Status: Acute Problem details: 32+4 wks EGA (2) Premature uterine contractions causing threatened premature labor in third trimester: Status: Acute (3) History of premature delivery, currently : Status: Acute Problem details: Delivered 25 wks EGA, 1st DOL Plan/Disposition Plan: Oral hydration with p.o. H2O P.O. nifedipine protocol, 10 mg p.o. Q 20 minutes x4 doses. -minimal change in cramping/contraction activity on external monitoring UA negative MFM negative Cervical length 1.5 cm Contact made with transfer center, awaiting return call Rather than waiting and starting IV magnesium sulfate & beta-methasone here, patient requests discharge so that she can travel POV to [facility]. Patient departed unit at approximately 1:30 p.m. for POV travel to [facility]. Case history, findings and rationale for transfer discussed w/ Dr. Zuleta who accepts patient in transfer via POV OB Disposition: home
[2023-01-18 11:44] LABS: Appearance Urine UA CLEAR; Bilirubin Urine UA NEGATIVE (NEGATIVE); Color Urine UA YELLOW; Glucose Urine UA NEGATIVE (Negative); Ketones Urine UA NEGATIVE (NEGATIVE); Leukocyte Esterase Urine UA NEGATIVE (NEGATIVE); Nitrite Urine UA NEGATIVE (Negative); Occult Blood Urine UA TRACE-INTACT (Negative); Protein Urine UA NEGATIVE (Negative)
[2023-01-18] MEDS: NIFEdipine 10 MG CAPSULE PO ×4 (11:55→13:01)
[2023-01-18 12:02] LABS: Squamous Epithelial Cell Urine 1-5 /HPF (0-5/HPF)
[2023-01-18 12:04] LABS: Bacteria Urine Few (2-10); Culture Indicated Urine Cult Not Indicated; RBC Urine 0-1/HPF (0-5/HPF); WBC Urine 1-5/HPF (0-5/HPF)
[2023-01-18 13:07] LABS: Fetal Fibronectin Negative
[2023-01-18] MEDS: NIFEdipine 30 MG TAB ER PO (13:30)
== END 2023-01-18 13:40 | disposition home or self-care (01) ==
PROVIDERS: Admitting Provider Obstetrics & Gynecology; PCP Physician Assistant; Visit Provider Obstetrics & Gynecology
DX: O47.03 False labor before 37 completed weeks of gestation, third trimester (principal); O09.213 Supervision of pregnancy with history of pre-term labor, third trimester; Z3A.32 32 weeks gestation of pregnancy
CPT/HCPCS: 59025; 59050; 76815; 76817; 76819; 81001; 82731; G0378; G0379